=== PATIENT | female | born 1990 | race Caucasian/White ===

== ENCOUNTER 2018-11-03 13:00 | Emergency (ER) | payer OTHER ==
[~2018-11-03] VITALS: Ht 157.5 cm; Wt 90.7 kg
[~2018-11-03 13:00] MED LIST: AZITHROMYCIN; BACTRIM DS TAB1 EACH PO; LORTABELXR PO; PREDNISONE50 MG PO; PRINIVIL5 MG PO; ZOFRAN ODT4 MG PO
[2018-11-03] MEDS ORDERED: COSENTYX P150 MG/11 SUBQ (13:10)
[2018-11-03] MEDS ORDERED: ARAVA20 MG PO (13:11)
[2018-11-03 13:44] LABS: URINE BILIRUBIN NEGATIVE (Negative); URINE BLOOD NEGATIVE (Negative); URINE CLARITY CLEAR; URINE COLOR YELLOW; URINE GLUCOSE-RANDOM NEGATIVE (Negative); URINE KETONES NEGATIVE (Negative); URINE LEUKOCYTES-REFLEX NEGATIVE (Negative); URINE NITRITE-REFLEX NEGATIVE (Negative); URINE PROTEIN NEGATIVE (Negative); URINE UROBILINOGEN 0.2 E.U./dl (0.2-1.0)
[2018-11-03 13:50] LABS: INFLUENZA A ANTIGEN None Detected (None Detect); INFLUENZA B ANTIGEN None Detected (None Detect)
[2018-11-03] MEDS ORDERED: MEDROLDOSEPACK PO (14:14)
[2018-11-03] MEDS ORDERED: AZITHROMYCIN500 MG PO (14:14)
[2018-11-03 14:45] VITALS: BP 170/92
== END 2018-11-03 14:46 | disposition home or self-care (01) ==
LOC: M.ERS 13:00
PROVIDERS: Nurse Practitioner Family
DX: J02.0 Streptococcal pharyngitis (principal); M79.10 Myalgia, unspecified site; M17.0 Bilateral primary osteoarthritis of knee; M16.11 Unilateral primary osteoarthritis, right hip; M16.12 Unilateral primary osteoarthritis, left hip; M19.041 Primary osteoarthritis, right hand; M19.042 Primary osteoarthritis, left hand; L40.9 Psoriasis, unspecified; Z88.5 Allergy status to narcotic agent; Z88.6 Allergy status to analgesic agent; Z88.0 Allergy status to penicillin; Z90.89 Acquired absence of other organs